=== PATIENT | male | born 1985 | race Caucasian/White ===

== ENCOUNTER 2024-09-07 16:16 | Emergency (ER) | payer OTHER ==
[~2024-09-07] VITALS: Ht 185.4 cm; Wt 143.1 kg
[2024-09-07 16:22] VITALS: BP 169/100; PULSE 97; RESP 18; TEMP 97.5; O2SAT 98
[2024-09-07] MEDS: LIDOcaine 1% W/epiNEPHrine 1:100,000 20ml vial SQ STA (16:49)
--- NOTE | 2024-09-07 17:39 | Physician Documentation ---
History of Present Illness ~ Chief Complaint: Laceration Stated Complaint: LAC RT HAND Time Seen by MD: 16:28 HPI Patient is seen today with complaints of crush type injury to his right small finger distal phalanx while working with a horse he states his finger got stuck in the parietal and crushed up against the metal buckle when the horse jerked his head back. Patient states this happened just prior to arrival earlier today. Just a couple of hours ago. Patient has no other concern or complaint at this time. Tetanus Within 5 Years: Yes (2023) Medication Reconciliation Allergies: Coded Allergies: No Known Allergies (Unverified , 09/07/24) Review of Systems Constitutional: Denies: chills, fever, weakness Eyes: Denies: pain, blurred vision ENT: Denies: ear pain, nose pain, throat pain, mouth pain Respiratory: Denies: cough, shortness of breath Cardiovascular: Denies: chest pain, palpitations Gastrointestinal: Denies: abdominal pain, nausea, vomiting Genitourinary: Denies: burning, dysuria Male Genitalia: Denies: penile discharge, testicular pain Neurological: Denies: headache, dizziness Musculoskeletal: Denies: pain, swelling Integumentary: Denies: rash, lesions Allergic/Immunologic: Denies: hives, itching Hematologic/Lymphatic: Denies: no symptoms reported Psychiatric: Denies: depression, anxiety Physical Exam Vital Signs: Temperature: 97.5, Source: Temporal, Heart Rate: 97, Respiratory Rate: 18, BP: 169/100, Pulse Oximetry: 98, Weight: 143.100 Physical Exam General: Awake and Alert, no acute distress. HEENT: Conjunctiva pink, Sclera clear, Mucus Membranes moist. Neck: Supple without masses and tenderness. Resp: Unlabored. Lungs clear to auscultation bilaterally. Heart: Regular Rate and rhythm, normal S1 and S2 without murmur, rub or gallop. Musculoskeletal: Patient on exam does have 3 cm laceration from crush injury to right small finger distal phalanx ulnar aspect. Patient is neurovascularly intact distally. Motor function intact distally. Patient does have significant soft tissue swelling that area. No significant active bleeding. Extremities: No cyanosis,clubbing or edema. Skin: Warm and Dry. Procedures Laceration/Wound Repair Laceration : Procedure Note Procedure note: Digital block achieved using 1% lidocaine without epinephrine using 4 cc of lidocaine to the right small finger. Small amount of local anesthetic also injected into the distal tuft of the right small finger. Patient tolerated well. Finger was then irrigated with copious amounts of normal saline. Nine simple sutures were used to achieve closure of the lacera tion that measured approximately 3 cm in length. Adhesive bandage then placed over repair site. Progress Results/Orders Results/Orders Orders - FAUSTO JUAREZ Finger(S) (09/07/24 16:53) Completed Orders - FAUSTO JUAREZ Lidocaine 1% W/Epi 1:100,000 (Xylocaine (09/07/24 16:35) Finger(S) (09/07/24 16:53) Vital Signs 09/07/24 16:22 Temp 97.5 Pulse 97 Resp 18 B/P (MAP) 169/100 Pulse Ox 98 EKG/XRAY/CT/US/VASC/MRI Bone/Soft Tissue X-Ray (Ext.) : Additional Comment X-ray of right small finger interpreted by myself today shows no sign of acute fracture, no osteolytic or blastic lesions, bones in anatomic alignment. DIAGNOSTIC RADIOLOGY Patient: MAYKEL ADAMS Medical Record: [id number] [facility] : 1985, Age: 39 Sex: Male Location: ER Patient Status: [facility] ER Service Date/Time: 09/07/241652 Ordering Physician: FAUSTO JUAREZ Exam: FINGER(S) CLINICAL INDICATION: crush injury right small finger TECHNIQUE: DI FINGER(S) Comparison: None FINDINGS/IMPRESSION: : There is no evidence of acute fracture or dislocation. Soft-tissue ulceration at the distal 5th digit. Electronically Signed by:EDUAR MONTIEL MD Date & Time: 09/07/24 649 Dictated by: EDUAR MONTIEL MD Dictation date and time: 09/07/24 3284 Primary Care Provider: NO PRIMARY CARE PROVIDER cc: FAUSTO JUAREZ ~ Medical Decision Making Findings Patient is seen today with complaints of crush type injury to his right small finger distal phalanx while working with a horse he states his finger got stuck in the parietal and crushed up against the metal buckle when the horse jerked his head back. Patient states this happened just prior to arrival earlier today. Just a couple of hours ago. Patient has no other concern or complaint at this time. Patient did have suture repair of right small finger done by myself today which patient tolerated well. Dose of Augmentin 875/125 mg one tab given by mouth in the ED tonight. Prescription of the same sent to patient's pharmacy one tab twice a day for seven days. Patient will follow up with primary care or return to ED for suture removal in 7-10 days. Patient will return to ED with any worsening, concerning or changing symptoms. Departure Disposition: HOME / SELF CARE / HOMELESS Impression: Primary Impression: Laceration Condition: Improved Discharge Instructions: Laceration Care, Adult, [id number] Additional Instructions: Patient did have suture repair of right small finger done by myself today which patient tolerated well. Dose of Augmentin 875/125 mg one tab given by mouth in the ED tonight. Prescription of the same sent to patient's pharmacy one tab twice a day for seven days. Patient will follow up with primary care or return to ED for suture removal in 7-10 days. Patient will return to ED with any worsening, concerning or changing symptoms. Referrals: NO PRIMARY CARE PROVIDER (PCP) Prescriptions Amox Tr/Potassium Clavulanate (Augmentin 875-125 Tablet) 1 Each Tablet 1 TAB PO Q12H for 7 Days, #14 TAB Prov: FAUSTO JUAREZ 09/07/24 Signature Scribe Signature: No scribe Attestation: No scribe FAUSTO JUAREZ Sep 07, 2024 17:39
[2024-09-07] MEDS: amox tr/potassium clavulanate 875/125mg TAB PO STA (17:43)
[2024-09-07] MEDS ORDERED: AMOX-117 PO (17:48)
== END 2024-09-07 18:00 | disposition home or self-care (01) ==
LOC: ER 16:17
DX: S67.196A Crushing injury of right little finger, initial encounter (principal); W23.0XXA Caught, crushed, jammed, or pinched between moving objects, initial encounter; Y93.89 Activity, other specified; Y92.89 Other specified places as the place of occurrence of the external cause; Y99.8 Other external cause status
CPT/HCPCS: 12002; 73140; 99283; J7030; A6258; A6449